=== PATIENT | male | born 1980 | race American Indian/Alaskan Native ===

== ENCOUNTER 2021-11-14 16:09 | Emergency (ER) | payer BC ==
[2021-11-14] MEDS ORDERED: SODIUM CHLORIDE 0.9% IRR 500 ML BOTTLE IR ONE (16:25)
--- NOTE | 2021-11-14 16:25 | Emergency Department Report ---
ED Animal Bite HPI - General Chief Complaint: Animal Bite Stated Complaint: DOG BITE Source: patient Mode of arrival: Ambulatory Limitations: No Limitations - History of Present Illness Initial Comments: 41 yo comes in with superficial dog bite to the left ankle. It was his neighbors household dog. rabies status unknown. Wound is not bleeding. 3 mm x 3 mm. Pt needs tdap ambulatory and non ill appearing MD Complaint: animal bite -: Sudden, hour(s) Location: other Animal: dog Description: household pet Mechanism: bite Associated Symptoms: none - Related Data Patient Tetanus UTD: No ED Review of Systems ROS: Stated complaint: DOG BITE Other details as noted in HPI Comment: All other systems reviewed and negative ED Past Medical Hx - Past Medical History Previous Medical History?: Yes Hx Hypertension: Yes - Surgical History Past Surgical History?: No - Family History Family history: no significant - Social History Smoking Status: Never Smoker Substance Use Type: None ED Physical Exam - General General appearance: alert, in no apparent distress - Head Head exam: Present: atraumatic, normocephalic - Eye Eye exam: Present: normal appearance - ENT ENT exam: Present: mucous membranes moist - Neck Neck exam: Present: normal inspection - Respiratory Respiratory exam: Present: normal lung sounds bilaterally. Absent: respiratory distress - Cardiovascular Cardiovascular Exam: Present: regular rate, normal rhythm. Absent: systolic murmur, diastolic murmur, rubs, gallop - GI/Abdominal GI/Abdominal exam: Present: soft, normal bowel sounds - Rectal Rectal exam: Present: deferred - Extremities Exam Extremities exam: Present: normal inspection - Back Exam Back exam: Present: normal inspection - Neurological Exam Neurological exam: Present: alert, oriented X3 - Psychiatric Psychiatric exam: Present: normal affect, normal mood - Skin Skin exam: Present: warm, dry, intact, normal color, other. Absent: rash ED Course - Reevaluation(s) Reevaluation #1: 11/14/21 16:34 allergy pcn wound cleaned tdap given educated on rabies and follow up no anbx given - the wound is very superficial and minimal vs normal as documented manually by director critical care attestation.: If time is entered above; I have spent that time in minutes in the direct care of this critically ill patient, excluding procedure time. ED Disposition Clinical Impression: Dog bite Disposition: HOME / SELF CARE / HOMELESS Is pt being admited?: No Does the pt Need Aspirin: No Condition: Stable Instructions: Animal Bite, Adult, [id number] Additional Instructions: keep wound clean and dry tdap up dated today discuss with casting machine service operator of animal rabies status and if needed see [facility] within 72 hours referral below motrin or tylenol for pain Referrals: [facility] Depart [Outside] - 3-5 Days Time of Disposition: 16:26
[2021-11-14 16:35] VITALS: BP 151/86
[2021-11-14] MEDS ORDERED: TETANUS,DIPH,PERTUSS(ACELL) VACCINE 0.5 ML SYRINGE IM ONE (17:00)
== END 2021-11-14 17:09 | disposition home or self-care (01) ==
LOC: ED 16:09
DX: S91.052A Open bite, left ankle, initial encounter (principal); I10 Essential (primary) hypertension; W54.0XXA Bitten by dog, initial encounter; Y93.89 Activity, other specified; Y92.89 Other specified places as the place of occurrence of the external cause; Y99.8 Other external cause status
CPT/HCPCS: 90471; 90715; 99282